=== PATIENT | female | born 1995 | race Caucasian/White ===

== ENCOUNTER → 2022-11-02 | Day surgery (SDC) | payer BC | LOC: CSHULT 12:31 | PROVIDERS: ATTEND Surgery | PROC: 0HBT3ZX Excision of Right Breast, Percutaneous Approach, Diagnostic (ICD-10-PCS; principal; 2022-11-02) | DX: D24.1 Benign neoplasm of right breast (principal); N63.12 Unspecified lump in the right breast, upper inner quadrant | CPT/HCPCS: 19083; 88305 ==

== ENCOUNTER 2023-09-24 08:24 | Outpatient (CLI) | payer BC | END 2023-09-24 08:25 | disposition home or self-care (01) | LOC: CSHULT 08:24 | PROVIDERS: ATTEND Nurse Practitioner Family | DX: D24.1 Benign neoplasm of right breast (principal); N60.02 Solitary cyst of left breast; Z15.01 Genetic susceptibility to malignant neoplasm of breast; N63.10 Unspecified lump in the right breast, unspecified quadrant; N63.20 Unspecified lump in the left breast, unspecified quadrant; Z80.3 Family history of malignant neoplasm of breast ==